=== PATIENT | male | born 1950 | race Caucasian/White ===

== ENCOUNTER 2016-09-28 13:16 | Emergency (ER) | payer BC ==
[~2016-09-28] VITALS: Ht 177.8 cm; Wt 115.3 kg
[~2016-09-28 13:16] MED LIST: COQ-10100 MG PO; Cozaar PO; Ecotrin PO; Lipitor PO; Niaspan,Slo-Niacin PO; OMEGA 3-6-91200 MG PO; ORACEA40 MG PO; Plavix PO; Theragran PO; celeBREX PO
[2016-09-28] MEDS ORDERED: PREDNISONE50 MG PO (15:52)
[2016-09-28] MEDS ORDERED: ULTRAM50 MG PO (15:52)
[2016-09-28] MEDS ORDERED: CIALIS5 MG PO (16:12)
[2016-09-28 16:13] VITALS: BP 171/85
== END 2016-09-28 16:14 | disposition home or self-care (01) ==
LOC: EME 13:16
DX: M54.42 Lumbago with sciatica, left side (principal); M79.605 Pain in left leg; E11.9 Type 2 diabetes mellitus without complications; Z98.61 Coronary angioplasty status; Z87.891 Personal history of nicotine dependence; Z96.652 Presence of left artificial knee joint
CPT/HCPCS: 93971; 99281; 99284